=== PATIENT | female | born 1945 | race Caucasian/White ===

== ENCOUNTER 2018-09-19 16:06 | Emergency (ER) | payer MEDICARE, OTHER ==
[2018-09-19 16:49] VITALS: BP 132/74; PULSE 59; TEMP 98.6; BMI 22.3
--- NOTE | 2018-09-19 16:49 | PDOC ---
Rapid Medical Evaluation Time Seen by Provider: 09/19/18 16:44 Medical Evaluation: Allergies Allergy/AdvReac Type Severity Reaction Status Date / Time No Known Drug Allergies Allergy Verified 11/29/12 09:06 I have performed a brief in-person evaluation of this patient. The patient presents with a chief complaint of: cough, congestion, b/l earache x 1 week. has been taking robitussin Pertinent physical exam findings: nasal congestion, dry cough I have ordered the following: nothing The patient will proceed to the ED for further evaluation. Discharge Disposition - Diagnosis Cough, Nasal congestion - Referrals Referrals: Matt Chirinos MD [Primary Care Provider] - - Patient Instructions - Post Discharge Activity
[2018-09-19] MEDS ORDERED: DEXAMETHASONE LIQUID 0.5 MG/5 ML 240 ML BULK BOTTLE PO ONE (18:02)
--- NOTE | 2018-09-19 18:05 | PDOC ---
History of Present Illness - General Chief Complaint: Cold Symptoms Stated Complaint: COLD Time Seen by Provider: 09/19/18 16:44 - History of Present Illness Initial Comments: 09/19/18 18:02 73-year-old female with past medical history significant for dyslipidemia and hypertension as well as gastritis presents for evaluation of cough 4 days. She denies fever cough is worse when she lays flat she also has stuffy nose and flulike symptoms. Past History - Past Medical History Allergies/Adverse Reactions: Allergies Allergy/AdvReac Type Severity Reaction Status Date / Time No Known Drug Allergies Allergy Verified 11/29/12 09:06 Home Medications: Ambulatory Orders Atorvastatin Ca [Lipitor] 40 mg PO HS 11/14/12 Ranitidine [Zantac -] 150 mg PO DAILY 11/14/12 Sertraline HCl [Zoloft -] 50 mg PO DAILY 11/14/12 Valsartan [Diovan] 80 mg PO DAILY 11/14/12 Hydrocodone/Acetaminophen [Lortab 10-325 mg Tablet] 1 each PO PRN PRN #20 tablet 03/24/15 Naproxen Sodium [Aleve] 220 mg PO PRN PRN 03/24/15 Zolpidem Tartrate [Ambien] 5 mg PO HS 03/24/15 Albuterol Sulfate Inhaler - [Ventolin HFA Inhaler -] 1 - 2 inh PO Q4H #1 inhaler 09/19/18 Azithromycin [Zithromax -] 250 mg PO UTDICT #6 tab 09/19/18 Anemia: No Asthma: Yes Cancer: No Cardiac Disorders: No CVA: No COPD: No CHF: No Dementia: No Diabetes: No GI Disorders: Yes (ACID REFLUX) Disorders: Yes HTN: Yes Hypercholesterolemia: Yes Liver Disease: No Seizures: No Thyroid Disease: No - Surgical History Abdominal Surgery: No Appendectomy: No Cardiac Surgery: No Cholecystectomy: No Lung Surgery: No Neurologic Surgery: No Orthopedic Surgery: No - Immunization History Immunization Up to Date: Yes - Suicide/Smoking/Psychosocial Hx Smoking History: Never smoked Have you smoked in the past 12 months: No Information on smoking cessation initiated: No Hx Alcohol Use: No Drug/Substance Use Hx: No Substance Use Type: None Hx Substance Use Treatment: No Review of Systems - Review of Systems Constitutional: Yes: Chills, Malaise, Night Sweats. No: Fever Respiratory: Yes: Cough *Physical Exam - Vital Signs Last Vital Signs Temp Pulse Resp BP Pulse Ox 98.6 F 59 L 16 132/74 98 09/19/18 16:46 09/19/18 16:46 09/19/18 16:46 09/19/18 16:46 09/19/18 16:46 - Physical Exam Comments: 09/19/18 18:03 HEAD: NC/AT EYES: Conjuntiva clear Ears: Canals and TM's normal NOSE: No d/c THROAT: Moist mucous membrances, oral pharanx clear, uvula midline NECK: Supple without adenopathy CARDIAC: S1 S2 LUNGS: Bilateral basilar rhonchi and wheezes clear at the apices ABDOMEN: Soft NT ND MS: Full ROM in all joints without edema NEUROLOGIC: No gross sensory or motor deficits, NVID SKIN: Normal color and temperature no lesions or rashes Medical Decision Making - Medical Decision Making 09/19/18 18:57 Patient is improved after DuoNeb no wheezing minimal bibasal rhonchi at this point will treat with Zithromax for bronchitis *DC/Admit/Observation/Transfer Diagnosis at time of Disposition: Cough, Nasal congestion, Bronchitis - Discharge Dispostion Disposition: HOME Condition at time of disposition: Improved Decision to Admit order: No - Prescriptions Prescriptions: Azithromycin [Zithromax -] 250 mg PO UTDICT #6 tab - Referrals Referrals: Matt Chirinos MD [Primary Care Provider] - - Patient Instructions Printed Discharge Instructions: Acute Bronchitis, DI for Acute Bronchitis Additional Instructions: Return to the emergency room should symptoms worsen or go unresolved. Please follow-up with your primary care physician one to 2 days. If he feels short of breath at also prescribed an inhaler for you in addition to the antibiotics which she much complete the entire course of. Follow-up with your primary care physician in one to 2 days - Post Discharge Activity
[2018-09-19] MEDS ORDERED: ALBUTEROL SO4 2.5/IPRATROPIUM 0.5 INH SOL 3 ML VIAL.NEB. NEB ONE (18:10)
[2018-09-19] MEDS ORDERED: DEXAMETHASONE SOD PHOSPHATE 10 MG/1 ML VIAL ONE (18:10)
[2018-09-19] MEDS: ALBUTEROL SO4 2.5/IPRATROPIUM 0.5 INH SOL 3 ML VIAL.NEB. NEB SCH ×4 (18:15→19:02)
== END 2018-09-19 19:18 | disposition home or self-care (01) ==
LOC: JERFT 16:06
PROC: 3E0F7GC Introduction of Other Therapeutic Substance into Respiratory Tract, Via Natural or Artificial Opening (ICD-10-PCS; principal; 2018-09-19)
DX: J20.9 Acute bronchitis, unspecified (principal); J45.909 Unspecified asthma, uncomplicated; I10 Essential (primary) hypertension; E78.00 Pure hypercholesterolemia, unspecified; K21.9 Gastro-esophageal reflux disease without esophagitis
CPT/HCPCS: 94640; 99281-25

== ENCOUNTER 2018-11-13 16:47 | Emergency (ER) | payer MEDICARE, OTHER ==
[2018-11-13 17:06] VITALS: BP 157/85; PULSE 68; TEMP 98.6; BMI 21.9
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
== END 2018-11-13 18:10 | disposition home or self-care (01) ==
LOC: JERFT 16:47
DX: S09.90XA Unspecified injury of head, initial encounter (principal); W18.39XA Other fall on same level, initial encounter; Y93.89 Activity, other specified; Y92.89 Other specified places as the place of occurrence of the external cause; K21.9 Gastro-esophageal reflux disease without esophagitis; I10 Essential (primary) hypertension; E78.00 Pure hypercholesterolemia, unspecified; J45.909 Unspecified asthma, uncomplicated
CPT/HCPCS: 99281-25

== ENCOUNTER 2022-03-15 18:42 | Emergency (ER) | payer MEDICARE, OTHER ==
[2022-03-15 18:52] VITALS: BP 118/67; PULSE 96; TEMP 97.5; BMI 19.8
[2022-03-15] MEDS ORDERED: traMADol HCL 50 MG TABLET PO ONE (21:19)
[2022-03-15] MEDS ORDERED: LIDOCAINE 5% TOPICAL PATCH TP ONE (21:19)
[2022-03-15] MEDS ORDERED: ACETAMINOPHEN 325 MG TABLET (FP) PO ONE (21:20)
[2022-03-15] MEDS ORDERED: LIDOCAINE 5% TOPICAL PATCH ONE (21:21)
[2022-03-15] MEDS ORDERED: ACETAMINOPHEN 325 MG TABLET (FP) ONE (21:21)
[2022-03-15] MEDS ORDERED: traMADol HCL 50 MG TABLET ONE (21:22)
[2022-03-15] MEDS ORDERED: LIDOCAINE PATCH REMOVAL MC SCH (22:00)
== END 2022-03-16 00:38 | disposition home or self-care (01) ==
LOC: JER 18:42
DX: M54.9 Dorsalgia, unspecified (principal)
CPT/HCPCS: 72128-TC; 72131-TC; 99284-25

== ENCOUNTER 2022-10-03 13:45 | Emergency (ER) | payer MEDICARE, OTHER ==
[2022-10-03 13:56] VITALS: BP 123/71; PULSE 84; RESP 18; TEMP 98; BMI 23.0
[2022-10-03] MEDS ORDERED: traMADol HCL 50 MG TABLET PO ONE (15:11)
[2022-10-03] MEDS ORDERED: traMADol HCL 50 MG TABLET ONE (15:13)
== END 2022-10-03 15:21 | disposition home or self-care (01) ==
LOC: JERFT 13:45
DX: M51.26 Other intervertebral disc displacement, lumbar region (principal)
CPT/HCPCS: 99283-25

== ENCOUNTER 2023-04-04 11:01 | Emergency (ER) | payer MEDICARE, OTHER ==
[2023-04-04 11:08] VITALS: BP 123/79; PULSE 72; RESP 20; TEMP 99.1; BMI 19.3
[2023-04-04] MEDS ORDERED: ACETAMINOPHEN 1000 MG/100 ML BAG IVPB ONE (12:05)
[2023-04-04] MEDS ORDERED: ALBUTEROL SO4 2.5/IPRATROPIUM 0.5 INH SOL 3 ML VIAL.NEB. NEB ONE (12:28)
[2023-04-04] MEDS ORDERED: ACETAMINOPHEN INJECTION 100 ML IVPB ONE (12:29)
[2023-04-04] MEDS: ALBUTEROL SO4 2.5/IPRATROPIUM 0.5 INH SOL 3 ML VIAL.NEB. NEB SCH ×3 (13:04→13:08)
[2023-04-04 13:18] LABS: BASO % 0.4 % (0-2.0); EOS % 1.6 % (0-4.5); HEMATOCRIT 41.8 % (32.4-45.2); HEMOGLOBIN 14.7 GM/dL (10.7-15.3); LYMPH % 14.2 % (8-40); MCH 30.2 pg (25.7-33.7); MCHC 35.2 g/dl (32.0-36.0); MEAN CELL VOLUME 85.8 fl (80-96); MEAN PLT VOLUME 9.4 fl (7.5-11.1); MONO % 6.6 % (3.8-10.2); NEUT % 77.2 % (42.8-82.8); PLATELET COUNT 147 10^3/uL (134-434); RBC 4.87 M/mm3 (3.60-5.2); RDW 14.2 % (11.6-15.6); WHITE BLOOD COUNT 7.2 K/mm3 (4.0-10.0)
[2023-04-04 13:29] LABS: CALCIUM 9.3 mg/dL (8.5-10.1)
[2023-04-04 13:30] LABS: ALBUMIN 3.7 g/dl (3.4-5.0); BLOOD UREA NITROGEN 19.4 mg/dL (7-18)
[2023-04-04 13:33] LABS: CREATININE 1.1 mg/dL (0.55-1.3)
[2023-04-04 13:35] LABS: BILIRUBIN,TOTAL 0.9 mg/dL (0.2-1); TOT PROT 7.3 g/dl (6.4-8.2)
[2023-04-04] MEDS ORDERED: AZITHROMYCIN 500 MG TABLET PO ONE (14:05)
[2023-04-04] MEDS ORDERED: predniSONE 20 MG TABLET (UD) PO ONE (14:14)
[2023-04-04] MEDS ORDERED: predniSONE 20 MG TABLET (UD) ONE (14:29)
[2023-04-04] MEDS ORDERED: AZITHROMYCIN 500 MG TABLET ONE (14:29)
[2023-04-04] MEDS ORDERED: predniSONE 10 MG TABLET (UD) ONE (14:29)
== END 2023-04-04 15:06 | disposition home or self-care (01) ==
LOC: JER 11:01
PROC: 3E033NZ Introduction of Analgesics, Hypnotics, Sedatives into Peripheral Vein, Percutaneous Approach (ICD-10-PCS; principal; 2023-04-04)
PROC: 3E0F7GC Introduction of Other Therapeutic Substance into Respiratory Tract, Via Natural or Artificial Opening (ICD-10-PCS; 2023-04-04)
DX: R50.9 Fever, unspecified (principal); R05.9 Cough, unspecified; R09.81 Nasal congestion; J40 Bronchitis, not specified as acute or chronic; Z20.822 Contact with and (suspected) exposure to COVID-19
CPT/HCPCS: 0241U-QW; 36415; 71046-TC-FY; 80053; 85025; 87040; 94640; 96374; 99284-25

== ENCOUNTER 2024-05-03 13:23 | Emergency (ER) | payer MEDICARE, OTHER ==
[2024-05-03 13:42] VITALS: BP 130/78; PULSE 73; RESP 18; TEMP 98.4; BMI 17.6
[2024-05-03] MEDS ORDERED: LORATADINE 10 MG TABLET ONE (15:38)
[2024-05-03] MEDS ORDERED: ACETAMINOPHEN INJECTION 100 ML IVPB ONE (15:38)
[2024-05-03] MEDS: ACETAMINOPHEN 1000 MG/100 ML BAG IVPB ONE (16:06)
[2024-05-03] MEDS: SODIUM CHLORIDE 1,000 ML IV STA (16:06)
[2024-05-03] MEDS: LORATADINE 10 MG TABLET PO ONE (16:06)
[2024-05-03 16:09] LABS: BASO % 0.3 % (0-2.0); EOS % 0.4 % (0-4.5); HEMATOCRIT 43.6 % (32.4-45.2); HEMOGLOBIN 14.9 GM/dL (10.7-15.3); LYMPH % 24.4 % (8-40); MCH 30.1 pg (25.7-33.7); MCHC 34.2 g/dl (32.0-36.0); MEAN PLT VOLUME 8.3 fl (7.5-11.1); MONO % 5.6 % (3.8-10.2); NEUT % 69.3 % (42.8-82.8); PLATELET COUNT 173 10^3/uL (134-434); RBC 4.95 M/mm3 (3.60-5.2); RDW 13.8 % (11.6-15.6); WHITE BLOOD COUNT 6.3 K/mm3 (4.0-10.0)
[2024-05-03 16:29] LABS: POTASSIUM 3.7 mmol/L (3.5-5.1)
[2024-05-03 16:31] LABS: CALCIUM 9.4 mg/dL (8.5-10.1)
[2024-05-03 16:32] LABS: ALBUMIN 4.2 g/dl (3.4-5.0); BLOOD UREA NITROGEN 21.3 mg/dL (7-18)
[2024-05-03 16:35] LABS: CREATININE 1.1 mg/dL (0.55-1.3)
[2024-05-03 16:37] LABS: BILIRUBIN,TOTAL 1.5 mg/dL (0.2-1); TOT PROT 7.6 g/dl (6.4-8.2)
[2024-05-03] MEDS ORDERED: MAG HYDROX/ALH/SMC/DPHA/LIDO 240 ML MOUTHWASH MM SCH (18:00)
== END 2024-05-03 17:21 | disposition home or self-care (01) ==
LOC: JER 13:23
PROC: 3E033NZ Introduction of Analgesics, Hypnotics, Sedatives into Peripheral Vein, Percutaneous Approach (ICD-10-PCS; principal; 2024-05-03)
PROC: 3E0337Z Introduction of Electrolytic and Water Balance Substance into Peripheral Vein, Percutaneous Approach (ICD-10-PCS; 2024-05-03)
DX: K13.79 Other lesions of oral mucosa (principal); R68.83 Chills (without fever); Z20.822 Contact with and (suspected) exposure to COVID-19
CPT/HCPCS: 0241U-QW; 36415; 80053; 85025; 85651; 86140; 99284-25; J0131